=== PATIENT | male | born 1995 | race Caucasian/White ===

== ENCOUNTER 2019-08-08 19:29 | Emergency (ER) | payer OTHER ==
[~2019-08-08] VITALS: Ht 177.8 cm; Wt 77.1 kg
[2019-08-08 19:45] VITALS: BP 120/80
--- NOTE | 2019-08-08 19:48 | NUR ---
TO LOBBY A/W BED AMBULATORY
[2019-08-08 20:25] VITALS: BP 120/80
--- NOTE | 2019-08-08 20:25 | NUR ---
PT WAS CALLED FROM [facility], NO ANSWER, LWBS
--- NOTE | 2019-08-08 20:25 | NUR ---
PATIENT LEFT WITHOUT BEING SEEN BY DR. HINES. NO FURTHER CARE PROVIDED FOR PATIENT.
--- NOTE | 2019-08-08 20:30 | NUR ---
PT WAS CALLED FROM [facility], NO ANSWER, LWBS
== END 2019-08-08 20:25 | disposition left against medical advice (07) ==
LOC: MED 19:29
DX: M79.601 Pain in right arm (principal); Z53.21 Procedure and treatment not carried out due to patient leaving prior to being seen by health care provider